=== PATIENT | female | born 1950 | race American Indian/Alaskan Native ===

== ENCOUNTER 2019-01-08 09:55 | Outpatient (CLI) | payer MEDICARE ==
--- NOTE | 2019-01-08 14:08 | PET Report ---
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 Initial staging. TECHNIQUE: 1425 mCi of F18-FDG was administered via the left elbow at 10:32. Imaging was performed at 11:40 fro m the skull base through the thighs. Glucose level was 96 mg/dl just prior to the exam. CT imaging was obtained for attenuation correction and anatomic localization. COMPARISON: None Available FINDINGS: HEAD/NECK: No suspicious metabolic activity or significant CT abnormality. CHEST: No suspicious metabolic activity or significant CT abnormality. ABDOMEN/PELVIS: Intense metabolic activity along the cervix is consistent with the patient's reported malignancy. No other suspicious sites of metabolic activity are seen. There is a cyst along the ante rior segment of the right hepatic lobe measuring 1.2 cm on image 106 of series 2. No other significan t CT abnormality is seen. BONES: No suspicious metabolic activity is identified. No aggressive appearing osseous lesion is seen . ADDITIONAL FINDINGS:None. IMPRESSION: 1. Abnormal FDG activity along the cervix is consistent with the patient's reported malignancy. 2. No evidence of FDG avid metastatic disease. Signer Name: Yousuf Richter MD Signed: 01/08/2019 2:04 PM Workstation Name: [id number]
== END 2019-01-08 09:56 | disposition home or self-care (01) ==
LOC: PET 09:55
PROVIDERS: ATTEND Internal Medicine Hematology & Oncology
DX: C53.9 Malignant neoplasm of cervix uteri, unspecified (principal)
CPT/HCPCS: 78815; 82962; A9552

== ENCOUNTER 2019-07-30 08:16 | Outpatient (CLI) | payer MEDICARE ==
--- NOTE | 2019-07-30 12:48 | PET Report ---
PET sb to mt subsequent INDICATION / CLINICAL INFORMATION: C53.9 CERVICAL CA. TRACER: F-18 FDG 14.1 mCi IV injection on 07/30/2019. Blood glucose is 104 mg/dL. TECHNIQUE: Following injection of the above tracer and appropriate delay, PET imaging was performed from the [facility] ll base to the upper thighs. CT imaging was performed the same time for the purposes of anatomic loca lization. All CT scans at this location are performed using CT dose reduction for ALARA by means of a utomated exposure control. COMPARISON: 01/08/2019. FINDINGS: HEAD/NECK: No abnormal uptake. CHEST: No abnormal uptake. ABDOMEN/PELVIS: No abnormal uptake. UPPER LEGS: No abnormal uptake. INCIDENTAL CT FINDINGS: 1.2 cm hepatic cyst unchanged. IMPRESSION: No abnormal uptake. Signer Name: Clifford Mahmood MD Signed: 07/30/2019 12:44 PM Workstation Name: [id number]
== END 2019-07-30 08:17 | disposition home or self-care (01) ==
LOC: PET 08:16
PROVIDERS: ATTEND Internal Medicine Hematology & Oncology
DX: K76.89 Other specified diseases of liver (principal); C53.9 Malignant neoplasm of cervix uteri, unspecified
CPT/HCPCS: 78815; 82962; A9552

== ENCOUNTER 2021-05-23 10:41 | Outpatient (CLI) | payer MEDICARE ==
--- NOTE | 2021-05-25 13:40 | Mammography Report ---
DIGITAL SCREENING MAMMOGRAM WITH CAD, 05/23/2021 CLINICAL INFORMATION / INDICATION: Routine screening mammography. TECHNIQUE: Digital bilateral 2D mammography was obtained in the craniocaudal and mediolateral obliqu e projections. This examination was interpreted with the benefit of Computer-Aided Detection analysis . COMPARISON: 04/09/2019 from [facility] FINDINGS: Breast Density: There are scattered areas of fibroglandular density. No dominant mass, suspicious calcifications, or architectural distortion in either breast. Normal-appearing intramammary lymph node is incidentally noted in the superior aspect of the right br east. There has been no significant interval change. IMPRESSION: No mammographic evidence of malignancy. Follow up recommendation: Routine yearly BI-RADS Category 2: BENIGN. A "normal" or negative report should not discourage follow up or biopsy of a clinically significant f inding. A written summary of these findings will be mailed to the patient. The patient will be entered into a mammography reporting system which will generate a reminder letter for the patient's next appointmen t at the appropriate interval. The [employer] recommends yearly mammograms starting at age 40 and continuing as l deepa as a woman is in good health. Breast MRI is recommended for women with an approximate 20-25% or greater lifetime risk of breast cancer, including women with a strong family history of breast or ova aaron cancer or who have been treated for Hodgkin's disease. Signer Name: Tara Reyes MD Signed: 05/25/2021 1:35 PM Workstation Name: Press About Us
== END 2021-05-23 10:42 | disposition home or self-care (01) ==
LOC: SPVWC 10:41
PROVIDERS: ATTEND Physician Assistant Medical
DX: Z12.31 Encounter for screening mammogram for malignant neoplasm of breast (principal)
CPT/HCPCS: 77067